=== PATIENT | male | born 1990 | race Two or more races ===

== ENCOUNTER 2019-07-07 07:52 | Inpatient (IN) | payer OTHER ==
[~2019-07-07] VITALS: Ht 180.3 cm; Wt 127.0 kg
--- NOTE | 2019-07-07 08:14 | NUR ---
PTE MASCULINO ALERTA Y ORIENTADO EN LAS GAEL ESFERAS REFIERE VOMITOS X4 Y DOLOR ABDOMINAL DESDE LASHAWN. PTE INDICA ESTUVO LA SEMANA PASADA EN ESTADOS UNIDOS DONDE LE COMENZARON LOS SINTOMAS. SE UBICA PTE EN AREA DE OBSERVACION PARA EVALUACION MEDICA.
--- NOTE | 2019-07-07 09:18 | NUR ---
PTE EVALUADA POR EL DR ALVES QUIEN ORDENA EL [place]. MS Y BIRRIEL ORIENTA SOBRE EL MISMO, LO CUAL REFIERE ENTENDER Y REALIZA PRUEBAS DE LABORATORIO JULIEN ORDEN MEDICA Y SIGUIENDO MEDIDAS ASEPTICAS. SE ADMINISTRAN MEDICAMENTOS. TERAPIAS RESPIRATORIAS NOTIFICADAS A PERSONAL DE TURNO.
--- NOTE | 2019-07-07 15:11 | NUR ---
PACIENTE ALERTA Y ORIENTADO EN LETY GAEL ESFERAS, PRESENTA BUEN PATRON RESPIRATORIO Y MARCELINO DE DOLOR. CANALIZADO EN BRAZO RT PATENTE Y MARCELINO DE S/S DE FLEBITIS E INFILTRACION, RECIBIENDO RL A 150 ML/HR. PENDIENTE EVALUACION DE MEDICINA INTERNA CON DRA COVARRUBIAS POR LEUCOPENIA Y TROMBOCITOPENIA.
== END 2019-07-12 18:39 | disposition home or self-care (01) | DRG 202 ==
LOC: ER 07:52 → MEDJ 16:02
PROVIDERS: ADMIT Internal Medicine
PROC: 4A033R1 Measurement of Arterial Saturation, Peripheral, Percutaneous Approach (ICD-10-PCS; 2019-07-07)
PROC: 3E0F7GC Introduction of Other Therapeutic Substance into Respiratory Tract, Via Natural or Artificial Opening (ICD-10-PCS; 2019-07-07)
PROC: 8E0ZXY6 Isolation (ICD-10-PCS; 2019-07-07)
PROC: BB24ZZZ Computerized Tomography (CT Scan) of Bilateral Lungs (ICD-10-PCS; principal; 2019-07-08)
PROC: BW40ZZZ Ultrasonography of Abdomen (ICD-10-PCS; 2019-07-11)
DX: J20.0 Acute bronchitis due to Mycoplasma pneumoniae (principal); J98.11 Atelectasis; E86.0 Dehydration; E87.8 Other disorders of electrolyte and fluid balance, not elsewhere classified; R31.29 Other microscopic hematuria; K52.89 Other specified noninfective gastroenteritis and colitis; R31.0 Gross hematuria; D69.49 Other primary thrombocytopenia; K76.0 Fatty (change of) liver, not elsewhere classified